=== PATIENT | male | born 1970 | race Caucasian/White ===

== ENCOUNTER 2017-06-14 22:33 | Emergency (ER) | payer SELFPAY ==
[2017-06-14 23:55] LABS: CALCIUM 8.9 mg/dL (8.5-10.1); CARBON DIOXIDE 30.4 mmol/L (21-32); CHLORIDE SERUM 99 mmol/L (98-107); CREATININE SERUM 1.1 mg/dL (0.7-1.3); GFR1 > 60 mL/min; GLUCOSE SERUM 128 mg/dL (74-106); SODIUM SERUM 138 mmol/L (136-145)
[2017-06-14 23:58] LABS: BASOPHIL % 0.1 % (0-2); PLATELET COUNT 198 x10^3mcL (130-400); RED CELL DISTRIBUTION WIDTH 13.8 % (11.5-14.5)
[2017-06-15 00:01] LABS: ALBUMIN 3.8 g/dL (3.4-5.0); ALKALINE PHOSPHATASE 75 U/L (46-116); ALT/SGPT 31 U/L (16-63); AST/SGOT 17 U/L (15-37); BILIRUBIN TOTAL 0.6 mg/dL (0.20-1.00); LIPASE 113 IU/L (73-393)
[2017-06-15 00:10] LABS: TOTAL PROTEIN, SERUM 8.3 g/dL (6.4-8.2)
[2017-06-15 05:42] VITALS: BP 145/110
== END 2017-06-15 05:42 | disposition short-term general hospital (02) ==
LOC: ED 22:33
PROVIDERS: Emergency Medicine
DX: K37 Unspecified appendicitis (principal); I10 Essential (primary) hypertension
CPT/HCPCS: J1644; J1885; J2270; J2405; J2543; J3490

== ENCOUNTER 2019-05-22 16:44 | Inpatient (IN) | payer MEDICAID ==
[~2019-05-22] VITALS: Ht 167.6 cm; Wt 86.6 kg
[2019-05-22 18:33] LABS: BASOPHIL % 0.2 % (0-2); PLATELET COUNT 222 x10^3mcL (130-400); RED CELL DISTRIBUTION WIDTH 13.4 % (11.5-14.5)
[2019-05-22 19:00] LABS: microscopic required? YES; urine erythrocyte 1+ (NEGATIVE)
[2019-05-22 19:24] LABS: BILIRUBIN TOTAL 0.4 mg/dL (0.20-1.00); CALCIUM 8.7 mg/dL (8.5-10.1); CARBON DIOXIDE 26.6 mmol/L (21-32); CREATININE SERUM 1.4 mg/dL (0.7-1.3); T4(THYROXINE) 7.1 ug/dL (4.7-13.3); TOTAL PROTEIN, SERUM 8.2 g/dL (6.4-8.2)
[2019-05-22 19:38] LABS: AMPHETAMINE QUAL UR NONE DETECTED (See below)
[2019-05-22 20:43] VITALS: BP 104/41
[2019-05-22 21:11] VITALS: BP 127/86
[2019-05-22] MEDS ORDERED: LOTENSIN40 MG PO (21:44)
[2019-05-22 21:50] LABS: MAGNESIUM 1.8 mg/dL (1.8-2.4); PHOSPHOROUS 2.6 mg/dL (2.5-4.9)
[2019-05-23 04:00] VITALS: BP 133/86
[2019-05-23 04:37] LABS: BASOPHIL % 0.1 % (0-2); PLATELET COUNT 218 x10^3mcL (130-400); RED CELL DISTRIBUTION WIDTH 13.6 % (11.5-14.5)
[2019-05-23 04:56] LABS: CALCIUM 8.2 mg/dL (8.5-10.1); CARBON DIOXIDE 28.9 mmol/L (21-32); CHLORIDE SERUM 103 mmol/L (98-107); CREATININE SERUM 1.1 mg/dL (0.7-1.3); GFR1 > 60 mL/min; GLUCOSE SERUM 97 mg/dL (74-106); MAGNESIUM 1.7 mg/dL (1.8-2.4); PHOSPHOROUS 3.4 mg/dL (2.5-4.9); POTASSIUM SERUM 3.5 mmol/L (3.5-5.1); SODIUM SERUM 141 mmol/L (136-145)
[2019-05-23 05:28] VITALS: BP 125/82
[2019-05-23 07:59] VITALS: BP 130/87
[2019-05-23 12:08] VITALS: BP 126/83
[2019-05-23 17:23] VITALS: BP 128/87
[2019-05-23 20:35] VITALS: BP 141/91
[2019-05-24] VITALS (12 sets, daily range): BP systolic 137–156; BP diastolic 87–100
[2019-05-24 06:35] LABS: BASOPHIL % 0.3 % (0-2); PLATELET COUNT 202 x10^3mcL (130-400); RED CELL DISTRIBUTION WIDTH 12.9 % (11.5-14.5)
[2019-05-24 06:50] LABS: CALCIUM 8.3 mg/dL (8.5-10.1); CARBON DIOXIDE 29.9 mmol/L (21-32); CHLORIDE SERUM 105 mmol/L (98-107); CREATININE SERUM 0.9 mg/dL (0.7-1.3); GFR1 > 60 mL/min; GLUCOSE SERUM 88 mg/dL (74-106); MAGNESIUM 1.9 mg/dL (1.8-2.4); PHOSPHOROUS 2.7 mg/dL (2.5-4.9); POTASSIUM SERUM 3.6 mmol/L (3.5-5.1); SODIUM SERUM 142 mmol/L (136-145)
[2019-05-25 00:27] VITALS: BP 141/91
[2019-05-25 05:00] VITALS: BP 144/95
[2019-05-25 07:01] LABS: BASOPHIL % 0.4 % (0-2); PLATELET COUNT 216 x10^3mcL (130-400); RED CELL DISTRIBUTION WIDTH 13.5 % (11.5-14.5)
[2019-05-25 07:10] LABS: CALCIUM 8.2 mg/dL (8.5-10.1); CARBON DIOXIDE 26.3 mmol/L (21-32); CHLORIDE SERUM 104 mmol/L (98-107); GFR1 > 60 mL/min; GLUCOSE SERUM 82 mg/dL (74-106); POTASSIUM SERUM 3.4 mmol/L (3.5-5.1); SODIUM SERUM 139 mmol/L (136-145)
[2019-05-25 08:13] VITALS: BP 138/92
[2019-05-25 11:44] VITALS: BP 139/91
[2019-05-25 16:17] VITALS: BP 140/89
== END 2019-05-25 16:30 | disposition home or self-care (01) | DRG 190 ==
LOC: ED 16:44 → DU 19:36
PROVIDERS: Emergency Medicine; ADMIT Internal Medicine
DX: I21.4 Non-ST elevation (NSTEMI) myocardial infarction (principal); N17.0 Acute kidney failure with tubular necrosis; E86.0 Dehydration; E87.6 Hypokalemia; I12.9 Hypertensive chronic kidney disease with stage 1 through stage 4 chronic kidney disease, or unspecified chronic kidney disease; N18.3 Chronic kidney disease, stage 3 (moderate)
CPT/HCPCS: CLHCL; 83880; C1769; C1894; G0378; J0360; J1644; J1650; J2001; J2250; J3010; J3490; J7030; Q0092; Q9967